=== PATIENT | male | born 1940 | race Caucasian/White ===

== ENCOUNTER 2023-05-28 10:27 | Inpatient (IN) ==
[2023-05-28] MEDS ORDERED: Lactated Ringers 1000 ml BAG 1,000 ML IV ONE (10:50)
[2023-05-28] MEDS ORDERED: Senna TAB 8.6 mg TAB PO PRN (11:27)
[2023-05-28 11:53] LABS: ABS Basophils 0.2 10^3/uL (0.0-0.1); ABS Eosinophils 0.2 10^3/uL (0.0-0.5); ABS Lymphocytes 1.7 10^3/uL (1.0-4.8); ABS Monocytes 0.7 10^3/uL (0.0-1.1); ABS Neutrophils 10.1 10^3/uL (1.5-7.6); ABS Nucleated RBC 0.01 10^3/ul; Eosinophil % 1.2 %; Hematocrit 26.5 % (38-53); Hemoglobin 8.5 g/dL (13.2-16.3); Lymphocyte % 13.2 %; Mean Corpuscular Hemoglobin 27.4 pg (27-33); Mean Corpuscular Volume 85.9 fL (80-97); Mean Platelet Volume 8.9 fL (7.5-11.2); Nucleated Red Blood Cells % 0.1 %/100WBC (0.0-0.8); Platelet Count 348 10^3/uL (150-450); Red Blood Count 3.09 10^6/uL (4.06-5.63); Red Cell Distribution Width 16.3 % (12-17); White Blood Count 12.9 10^3/uL (3.6-10.2)
[2023-05-28 12:01] LABS: INR 2.17 (0.83-1.13)
[2023-05-28 12:10] LABS: Urine Appearance Cloudy; Urine Bilirubin Negative (Negative); Urine Blood 2+ (Negative); Urine Color Yellow; Urine Glucose Negative (Negative); Urine Ketones Negative (Negative); Urine Nitrite Negative (Negative); Urine Protein 2+(100 mg/dL) (Negative); Urine Specific Gravity 1.009 (1.002-1.030); Urine Urobilinogen Negative (Negative)
[2023-05-28 12:22] LABS: Albumin/Globulin Ratio 0.8 (1-3); Calcium 8.6 mg/dL (8.6-10.3); Creatinine, Serum 6.97 mg/dL (0.67-1.17); Globulin 3.7 g/dL (2-4); Magnesium 1.7 mg/dL (1.9-2.7); Phosphorus 5.6 mg/dL (2.5-5.0); Total Bilirubin 0.4 mg/dL (0.2-1.0); Total Protein 6.7 g/dL (6.4-8.9); eGFR CKD-EPI 7.2 (>60)
[2023-05-28 12:24] LABS: Urine Bacteria 1+ (Absent); Urine Red Blood Cell 3+(>10/hpf) (Absent); Urine White Blood Cell 3+(>20/hpf) (Absent)
[2023-05-28 18:13] LABS: Immature Retic Fraction 0.57
[2023-05-28 18:17] LABS: Corrected Retic Count 1.2 % (0.5-2.2); Hematocrit for Retic CNT 26.5 % (38-53); RBC Retic Count 3.09 10^6/ul (4.06-5.63)
[2023-05-28] MEDS: Heparin 5000 UNITS/ML 1 mL VIAL SUBCUT SCH (20:58)
[2023-05-29 02:26] LABS: Ferritin 53.6 ng/mL (24-336)
[2023-05-29 03:39] LABS: Calcium 8.6 mg/dL (8.6-10.3); Creatinine, Serum 7.67 mg/dL (0.67-1.17); Potassium 5.1 mmol/L (3.5-5.0); eGFR CKD-EPI 6.4 (>60)
[2023-05-29] MEDS ORDERED: SODIUM ZIRCONIUM CYCLOSILICATE 5 GM PACKET PO ONE ×2 (04:41)
[2023-05-29] MEDS: Heparin 5000 UNITS/ML 1 mL VIAL SUBCUT SCH ×3 (05:56→21:51)
[2023-05-29] MEDS: Polyethylene Glycol 3350 17 GM PACKET PO SCH (07:56)
[2023-05-29 10:16] LABS: Hematocrit 26.8 % (38-53); Hemoglobin 8.7 g/dL (13.2-16.3); Mean Corpuscular Hemoglobin 27.6 pg (27-33); Mean Corpuscular Hgb Conc 32.4 g/dL (31-36); Mean Corpuscular Volume 85.2 fL (80-97); Mean Platelet Volume 8.6 fL (7.5-11.2); Platelet Count 391 10^3/uL (150-450); Red Blood Count 3.14 10^6/uL (4.06-5.63); Red Cell Distribution Width 16.3 % (12-17); White Blood Count 13.2 10^3/uL (3.6-10.2)
[2023-05-29 10:58] LABS: ABS Basophils 0.2 10^3/uL (0.0-0.1); ABS Eosinophils 0.2 10^3/uL (0.0-0.5); ABS Lymphocytes 1.4 10^3/uL (1.0-4.8); ABS Monocytes 0.6 10^3/uL (0.0-1.1); ABS Neutrophils 10.8 10^3/uL (1.5-7.6); ABS Nucleated RBC 0.01 10^3/ul; Eosinophil % 1.4 %; Lymphocyte % 10.7 %; Nucleated Red Blood Cells % 0.1 %/100WBC (0.0-0.8)
[2023-05-29] MEDS: cefTRIAXone 1 gm/50 mL D5W 1 GM/50 ML BAG IV SCH (11:30)
[2023-05-29 13:30] LABS: Calcium 8.6 mg/dL (8.6-10.3); Creatinine, Serum 8.07 mg/dL (0.67-1.17); Magnesium 1.8 mg/dL (1.9-2.7); Potassium 5.1 mmol/L (3.5-5.0); eGFR CKD-EPI 6.1 (>60)
[2023-05-29] MEDS ORDERED: fentaNYL 100 mcg/2 ml 50 MCG/ML VIAL ONE (15:10)
[2023-05-29] MEDS ORDERED: Propofol 10 MG/ML 20 ML BTL ONE (15:11)
[2023-05-29] MEDS ORDERED: Lidocaine 2% PF 5 ML VIAL ONE (15:12)
[2023-05-29] MEDS ORDERED: Iohexol 180 (CONTRAST) 10 ML SDV IV ONE (15:25)
[2023-05-29] MEDS ORDERED: Glycopyrrolate IV 0.2 MG/ML 1 ML VIAL ONE ×2 (15:42→15:49)
[2023-05-29] MEDS ORDERED: Naloxone 0.4 mg VIAL 0.4 mg/ml 1 ml VIAL IV PRN (16:05)
[2023-05-30] MEDS: Heparin 5000 UNITS/ML 1 mL VIAL SUBCUT SCH ×3 (05:48→20:47)
[2023-05-30 06:20] LABS: Hematocrit 28.7 % (38-53); Hemoglobin 9.2 g/dL (13.2-16.3); Mean Corpuscular Hemoglobin 27.5 pg (27-33); Mean Corpuscular Hgb Conc 32.1 g/dL (31-36); Mean Corpuscular Volume 85.5 fL (80-97); Platelet Count 339 10^3/uL (150-450); Red Blood Count 3.35 10^6/uL (4.06-5.63); Red Cell Distribution Width 16.5 % (12-17); White Blood Count 12.9 10^3/uL (3.6-10.2)
[2023-05-30 06:52] LABS: Calcium 8.6 mg/dL (8.6-10.3); Creatinine, Serum 8.34 mg/dL (0.67-1.17); Magnesium 1.7 mg/dL (1.9-2.7); Potassium 4.9 mmol/L (3.5-5.0); eGFR CKD-EPI 5.8 (>60)
[2023-05-30 09:14] LABS: INR 1.63 (0.83-1.13)
[2023-05-30] MEDS ORDERED: cefTRIAXone 2 gm/50 mL D5W 2 GM/50 ML BAG IV ONE (09:30)
[2023-05-30] MEDS ORDERED: Midazolam 2 mg/2 ml VIAL 1 mg/ml 2 ml VIAL (2 mg) ONE (09:45)
[2023-05-30] MEDS ORDERED: fentaNYL 100 mcg/2 ml 50 MCG/ML VIAL ONE (09:45)
[2023-05-30] MEDS ORDERED: Flumazenil 0.5 mg/5 ml 0.1 MG/ML 5 ml VIAL IV PRN (10:56)
[2023-05-30] MEDS ORDERED: Naloxone 0.4 mg VIAL 0.4 mg/ml 1 ml VIAL IV PUSH PRN (10:56)
[2023-05-30] MEDS ORDERED: Midazolam 10 mg/10 ml VIAL 1 mg/ml 10 ml VIAL (10 mg) IV SLOW PU ONE (10:56)
[2023-05-30] MEDS ORDERED: fentaNYL 100 mcg/2 ml 50 MCG/ML VIAL IV SLOW PU ONE (10:56)
[2023-05-30] MEDS: Polyethylene Glycol 3350 17 GM PACKET PO SCH (13:37)
[2023-05-30] MEDS: cefTRIAXone 1 gm/50 mL D5W 1 GM/50 ML BAG IV SCH (13:45)
[2023-05-30] MEDS: NS 0.45% 1000 ml BAG 1,000 ML IV SCH ×2 (18:40→23:14)
[2023-05-30 19:00] LABS: Creatinine, Serum 7.04 mg/dL (0.67-1.17); Potassium 4.8 mmol/L (3.5-5.0); eGFR CKD-EPI 7.1 (>60)
[2023-05-31] MEDS: Heparin 5000 UNITS/ML 1 mL VIAL SUBCUT SCH ×2 (06:03→14:21)
[2023-05-31 09:32] LABS: Hematocrit 29.2 % (38-53); Hemoglobin 9.3 g/dL (13.2-16.3); Mean Corpuscular Hemoglobin 27.3 pg (27-33); Mean Corpuscular Hgb Conc 31.9 g/dL (31-36); Mean Corpuscular Volume 85.4 fL (80-97); Platelet Count 241 10^3/uL (150-450); Red Blood Count 3.42 10^6/uL (4.06-5.63); Red Cell Distribution Width 17.1 % (12-17); White Blood Count 16.3 10^3/uL (3.6-10.2)
[2023-05-31] MEDS: Polyethylene Glycol 3350 17 GM PACKET PO SCH (09:34)
[2023-05-31 10:00] LABS: Calcium 8.9 mg/dL (8.6-10.3); Creatinine, Serum 4.1 mg/dL (0.67-1.17); eGFR CKD-EPI 13.7 (>60)
[2023-05-31 10:30] LABS: Potassium 4.7 mmol/L (3.5-5.0)
[2023-05-31] MEDS: cefTRIAXone 1 gm/50 mL D5W 1 GM/50 ML BAG IV SCH (10:49)
[2023-05-31] MEDS ORDERED: NS 0.45% 1000 ml BAG 1,000 ML IV SCH (12:00)
[2023-05-31 15:36] LABS: Calcium 8.6 mg/dL (8.6-10.3); Creatinine, Serum 3.72 mg/dL (0.67-1.17); Potassium 4.3 mmol/L (3.5-5.0); eGFR CKD-EPI 15.3 (>60)
[2023-06-01 06:42] LABS: Hematocrit 26.3 % (38-53); Hemoglobin 8.5 g/dL (13.2-16.3); Mean Corpuscular Hemoglobin 27.7 pg (27-33); Mean Corpuscular Hgb Conc 32.3 g/dL (31-36); Mean Corpuscular Volume 85.8 fL (80-97); Mean Platelet Volume 8.8 fL (7.5-11.2); Platelet Count 356 10^3/uL (150-450); Red Blood Count 3.07 10^6/uL (4.06-5.63); Red Cell Distribution Width 16.4 % (12-17); White Blood Count 10.1 10^3/uL (3.6-10.2)
[2023-06-01 06:58] LABS: Calcium 8.4 mg/dL (8.6-10.3); Creatinine, Serum 2.19 mg/dL (0.67-1.17); Potassium 3.9 mmol/L (3.5-5.0)
[2023-06-01] MEDS: cefTRIAXone 1 gm/50 mL D5W 1 GM/50 ML BAG IV SCH (10:30)
[2023-06-02 08:50] LABS: Calcium 8.6 mg/dL (8.6-10.3); Creatinine, Serum 1.74 mg/dL (0.67-1.17); Potassium 3.9 mmol/L (3.5-5.0); eGFR CKD-EPI 38.2 (>60)
[2023-06-02] MEDS ORDERED: NS 0.45% 1000 ml BAG 1,000 ML IV SCH (12:00)
[2023-06-03 06:51] LABS: ABS Basophils 0.1 10^3/uL (0.0-0.1); ABS Eosinophils 0.3 10^3/uL (0.0-0.5); ABS Lymphocytes 2.5 10^3/uL (1.0-4.8); ABS Neutrophils 7.8 10^3/uL (1.5-7.6); ABS Nucleated RBC 0.01 10^3/ul; Eosinophil % 2.9 %; Hematocrit 28.1 % (38-53); Hemoglobin 8.9 g/dL (13.2-16.3); Lymphocyte % 20.9 %; Mean Corpuscular Hemoglobin 27.2 pg (27-33); Mean Corpuscular Hgb Conc 31.5 g/dL (31-36); Mean Corpuscular Volume 86.3 fL (80-97); Mean Platelet Volume 9.4 fL (7.5-11.2); Nucleated Red Blood Cells % 0.1 %/100WBC (0.0-0.8); Platelet Count 250 10^3/uL (150-450); Red Blood Count 3.26 10^6/uL (4.06-5.63); Red Cell Distribution Width 16.9 % (12-17); White Blood Count 11.7 10^3/uL (3.6-10.2)
[2023-06-03 07:11] LABS: Calcium 8.4 mg/dL (8.6-10.3); Creatinine, Serum 1.65 mg/dL (0.67-1.17); Potassium 3.6 mmol/L (3.5-5.0); eGFR CKD-EPI 40.7 (>60)
[2023-06-04 06:44] LABS: Hematocrit 28.5 % (38-53); Mean Corpuscular Hemoglobin 27.2 pg (27-33); Mean Corpuscular Hgb Conc 31.6 g/dL (31-36); Mean Corpuscular Volume 86.1 fL (80-97); Mean Platelet Volume 9.5 fL (7.5-11.2); Platelet Count 319 10^3/uL (150-450); Red Blood Count 3.31 10^6/uL (4.06-5.63); Red Cell Distribution Width 17.1 % (12-17)
[2023-06-04 07:13] LABS: Calcium 8.6 mg/dL (8.6-10.3); Creatinine, Serum 1.44 mg/dL (0.67-1.17); Potassium 3.5 mmol/L (3.5-5.0); eGFR CKD-EPI 47.9 (>60)
[2023-06-04 07:25] LABS: ABS Basophils 0.2 10^3/uL (0.0-0.1); ABS Eosinophils 0.4 10^3/uL (0.0-0.5); ABS Lymphocytes 2.1 10^3/uL (1.0-4.8); ABS Monocytes 0.7 10^3/uL (0.0-1.1); ABS Neutrophils 8.6 10^3/uL (1.5-7.6); ABS Nucleated RBC 0.01 10^3/ul; Eosinophil % 3.2 %; Lymphocyte % 17.8 %; Nucleated Red Blood Cells % 0.1 %/100WBC (0.0-0.8)
[2023-06-04 10:17] LABS: Rapid COVID-19 Molecular Undetected (Undetected)
[2023-06-04 10:27] VITALS: BP 122/62
== END 2023-06-04 12:00 | DRG 699 ==
LOC: ED 10:27 → EDHOLD 11:27 → SUATTDRO 11:27 → MEDTELE 15:44 → MED 05-30 19:47
PROVIDERS: ADMIT Internal Medicine; ATTEND Internal Medicine